=== PATIENT | female | born 1995 | race Caucasian/White ===

== ENCOUNTER → 2021-01-30 | Outpatient (CLI) | payer OTHER ==
--- NOTE | 2021-01-30 13:35 | REP ---
INDICATION: LOW BACK PAIN, UNSPECIFIED COMPARISON: None. TECHNIQUE: AP, lateral, flexion/extension, bilateral oblique, and coned-down views. FINDINGS: Alignment and lordosis is maintained. The vertebral bodies including transverse process and spinous processes are intact and normal. There is no evidence for acute fracture / compression injury or subluxation. No evidence for spondylolysis or spondylolisthesis. No significant degenerative change is noted. IMPRESSION: Normal lumbosacral spine radiograph series. <Electronically signed by David Hoover > 01/30/21 [id number]
--- NOTE | 2021-01-30 13:36 | REP ---
INDICATION: LOW BACK PAIN, UNSPECIFIED. COMPARISON: None. TECHNIQUE: Single AP view of the pelvis FINDINGS: Osseous structures, joint spaces, and surrounding soft tissues are age-appropriate and normal. IMPRESSION: Normal pelvic radiograph. <Electronically signed by David Hoover > 01/30/21 [id number]
== END ==
LOC: M PLAIMG 10:30
PROVIDERS: ATTEND Physician Assistant
DX: M54.50 Low back pain, unspecified (principal)

== ENCOUNTER → 2021-01-30 | Outpatient (CLI) | payer OTHER ==
--- NOTE | 2021-01-31 06:06 | REP ---
INDICATION: CYST OF OVARY,LEFT COMPARISON: None. TECHNIQUE: Transabdominal pelvic ultrasound followed by transvaginal examination for better evaluation of the endometrium and adnexa with color Doppler evaluation of the ovaries. FINDINGS: Bladder is unremarkable and measures 7.3 x 3.0 x 7.1 cm. Normal anteverted uterus measures 9.4 x 5.4 x 4.0 cm. The endometrial complex measures 9.0 mm thickness. No discrete uterine or endometrial abnormalities are appreciated. Bilateral ovaries are normal in vascularity without evidence for torsion. Right ovary measures 4.4 x 2.7 x 2.5 cm and includes 1.9 cm simple likely physiologic cyst; R I = 0.50. Left ovary measures 2.3 x 1.5 x 1.6 cm; R I = 0.45. No pelvic fluid or adnexal mass lesion. IMPRESSION: Previously suspected left ovarian cyst has resolved and a new physiologic cyst is now identified in the right ovary. <Electronically signed by David Hoover > 01/31/21 [id number]
== END ==
LOC: M WHC 09:04
PROVIDERS: ATTEND Obstetrics & Gynecology
DX: N83.202 Unspecified ovarian cyst, left side (principal)

== ENCOUNTER 2022-05-01 13:55 | Inpatient (IN) | payer OTHER ==
[~2022-05-01] VITALS: Ht 157.5 cm; Wt 82.7 kg
[2022-05-01] MEDS ORDERED: ERGO500029 (14:33)
[2022-05-01] MEDS ORDERED: ATOM25CA7 (14:33)
[2022-05-01] MEDS ORDERED: LEVO150C PO (14:33)
[2022-05-01] MEDS ORDERED: VALA500T5 PO (14:33)
[2022-05-01 17:08] LABS: HEMATOCRIT 33.2 % (36.0-47.0); HEMOGLOBIN 11.4 g/dl (12.0-15.5); MEAN CORPUSCULAR HGB CONC 34.3 g/dl (32.0-36.5); MEAN CORPUSCULAR VOLUME 90.2 fl (80.0-96.0); PLATELET COUNT, AUTOMATED 251 10^3/uL (150-450); RED BLOOD COUNT 3.68 10^6/uL (4.00-5.40); WHITE BLOOD COUNT 8.5 10^3/uL (4.0-10.0)
[2022-05-01 17:25] LABS: ETHYL ALCOHOL (ETHANOL) < 0.003 % (0.000-0.010)
[2022-05-01 17:26] LABS: ACETAMINOPHEN LEVEL < 2.0 UG/ML (10.0-20.0)
[2022-05-01 17:27] LABS: SALICYLATE LEVEL < 3.0 MG/DL (<30)
[2022-05-01 17:31] LABS: ALBUMIN 3.4 G/DL (3.2-5.2); ALKALINE PHOSPHATASE 71 U/L (46-116); ALT/SGPT 21 U/L (7.0-40); AST/SGOT 15 U/L (<34); BILIRUBIN,DIRECT 0.1 MG/DL (<0.4); BILIRUBIN,TOTAL 0.5 MG/DL (0.3-1.2); BLOOD UREA NITROGEN 7 MG/DL (9-23); CALCIUM LEVEL 8.5 MG/DL (8.5-10.1); CARBON DIOXIDE LEVEL 26 MMOL/L (20-31); CHLORIDE LEVEL 105 MMOL/L (98-107); CREATININE FOR GFR 0.69 MG/DL (0.55-1.30); GLOMERULAR FILTRATION RATE > 60.0 (>60); GLUCOSE, FASTING 89 MG/DL (60-100); POTASSIUM SERUM 3.8 MMOL/L (3.5-5.1); SODIUM LEVEL 138 MMOL/L (136-145); TOTAL PROTEIN 6.2 G/DL (5.7-8.2)
[2022-05-01] MEDS ORDERED: VITA200030 PO (18:21)
[2022-05-01] MEDS ORDERED: PREN1CHW6 PO (18:21)
[2022-05-01] MEDS ORDERED: HOME MED LIST COMPLETE! XX SCH (18:25)
[2022-05-01 19:33] LABS: AMPHETAMINES LEVEL URINE NEGATIVE (NEGATIVE); BARBITURATES URINE NEGATIVE (NEGATIVE); BENZODIAZEPINES URINE NEGATIVE (NEGATIVE); COCAINE METABOLITE URINE NEGATIVE (NEGATIVE); METHADONE URINE NEGATIVE (NEGATIVE); OPIATES URINE NEGATIVE (NEGATIVE)
[2022-05-01 19:34] LABS: CANNABINOIDS URINE NEGATIVE (NEGATIVE); PHENCYCLIDINE URINE NEGATIVE (NEGATIVE)
[2022-05-01] MEDS ORDERED: ACETAMINOPHEN TAB 650MG DOSE (2X325MG) PO PRN (20:35)
[2022-05-01] MEDS ORDERED: MOM 30ML SUSPENSION UDC PO PRN (20:35)
[2022-05-01] MEDS ORDERED: MAALOX 30 ML SUSP *UDC PO PRN (20:35)
[2022-05-01 23:15] VITALS: BP 119/71
[2022-05-02 06:35] VITALS: BP 128/58
[2022-05-02] MEDS ORDERED: valACYclovir HCL 500 MG TAB PO PRN (12:45)
[2022-05-02] MEDS: SERTRALINE HCL 25 MG TABLET PO SCH (12:46)
[2022-05-02] MEDS: LEVOTHYROXINE 150MCG TABLET (0.15MG) PO SCH (12:51)
[2022-05-02] MEDS: VITAMIN D 1,000 INTERNATIONAL UNITS TABLET PO SCH (12:52)
[2022-05-02] MEDS: PRENATAL VITAMINS CHEWABLE TABLET PO SCH (15:09)
[2022-05-02 18:14] VITALS: BP 130/70
[2022-05-03] MEDS: LEVOTHYROXINE 150MCG TABLET (0.15MG) PO SCH (06:08)
[2022-05-03 06:40] VITALS: BP 113/57
[2022-05-03] MEDS ORDERED: PRENATAL VITAMINS CHEWABLE TABLET PO SCH (09:00)
[2022-05-03] MEDS: VITAMIN D 1,000 INTERNATIONAL UNITS TABLET PO SCH (09:10)
[2022-05-03] MEDS: SERTRALINE HCL 25 MG TABLET PO SCH (09:10)
[2022-05-03] MEDS: PRENATAL VITAMINS CHEWABLE TABLET PO SCH (09:11)
[2022-05-03] MEDS ORDERED: SERT25TA21 PO (09:47)
== END 2022-05-03 12:02 | disposition home or self-care (01) | DRG 833 ==
LOC: M ED 13:55 → M ED INP 20:33 → M PSY 22:27
PROVIDERS: ADMIT Student in an Organized Health Care Education/Training Program; ATTEND Student in an Organized Health Care Education/Training Program
DX: O99.341 Other mental disorders complicating pregnancy, first trimester (principal); F32.A Depression, unspecified; F43.20 Adjustment disorder, unspecified; E06.3 Autoimmune thyroiditis; O99.281 Endocrine, nutritional and metabolic diseases complicating pregnancy, first trimester; O99.011 Anemia complicating pregnancy, first trimester; D64.9 Anemia, unspecified; Z63.0 Problems in relationship with spouse or partner; Z79.890 Hormone replacement therapy; Z79.899 Other long term (current) drug therapy; Z3A.08 8 weeks gestation of pregnancy